=== PATIENT | male | born 1955 | race Caucasian/White ===

== ENCOUNTER → 2017-05-24 | Emergency (ER) | payer OTHER ==
[~2017-05-24] VITALS: Ht 175.3 cm; Wt 90.7 kg
[~2017-05-24] MED LIST: ASPIR 8181 MG; CIPRO500 MG PO; ESOMEPRAZOLE MA20 MG; ESOMEPRAZOLE MA40 MG; FLAGYL500MG; KETO10TA2 PO; LISINOPRIL10 MG; LIVALO4 MG
== END | disposition home or self-care (01) ==
LOC: ER 06:17
DX: R10.32 Left lower quadrant pain (principal)